=== PATIENT | male | born 1945 | race African-American/Black ===

== ENCOUNTER 2017-09-20 09:38 | Inpatient (IN) | payer MEDICARE ==
[2017-09-20] VITALS (24 sets, daily range): BP systolic 110–153; BP diastolic 46–98; BMI 24.0
[~2017-09-20] VITALS: Ht 175.3 cm; Wt 77.1 kg
--- NOTE | ~2017-09-20 | OP ---
PATIENT NAME: RADHA DIAZ MEDICAL RECORD: [id number] :43 LOCATION:D.M2 D.2118 ADMISSION DATE:09/20/17 SURGEON: SALONI RODGERS MD DATE OF OPERATION: 09/23/2017 PROCEDURE: Left heart catheterization, selective coronary angiography, right radial approach. CATHETERS: [place] catheter, radial sheath. Procedure was well tolerated. We proceeded with PTCA stenting to the diagonal 1. FINDINGS: Left ventriculography in 30-degree MEAD view shows global hypokinesis, overall reduced EF, estimated EF 30%. CORONARY ANATOMY: 1. Left main is free of disease. 2. LAD: LAD at the apex is basically subtotally occluded with a ____ vessel distally. There is a large diagonal branch parallel to the LAD with 2 sequential 90% stenosis, otherwise is diffusely severely diseased. 3. Circumflex is small vessel, free of disease. 4. Right coronary artery has severe diffuse distal disease, not amenable to intervention. IMPRESSION: I will plan ____ the diagonal. Using indwelling radial sheath, EBU 3.5 guiding catheter provided good catheter support followed by 300 cm Whisper wire was placed across the diffusely severely diseased diagonal and distal portion of this vessel. Pre-deployment balloon was a 2.5 x 15 mm [place] balloon up and down the vessel. Stents were deployed in the following fashion. A 3.0 x 30 mm Integrity nondrug-eluting stent was taken down to the distal portion of the diagonal. More proximally, another 3.0 x 30 mm Integrity nondrug-eluting stent was inflated up to 14 atmospheres. Final angiography shows excellent resolution of both 90% plus stenosis and no significant residual. NANCIE flow was 3 throughout the procedure. Plavix was loaded in the lab. Integrilin was given. Sheath closed with TR band. ____ medical management for cardiomyopathy as well. ____ will be consulted for that purpose. TRANSINT:[id number] Voice Confirmation ID: [id number] DOCUMENT ID: [id number] SALONI RODGERS MD at 1400 CC: [id number] DICTATION DATE: 09/23/17 1510 STORE SALES MANAGER: 09/23/17 1744 DIS IN 09/24/17 [facility] [address] [place] [address]
--- NOTE | ~2017-09-20 | EC ---
PATIENT:RADHA DIAZ DATE OF SERVICE: 09/20/17 SEX: M MEDICAL RECORD: [id number] DATE OF : 43 LOCATION:D.M2 D.211 AGE OF PATIENT: 72 ADMISSION DATE: 09/20/17 REFERRING PHYSICIAN: INTERPRETING PHYSICIAN: MIKE LUIS MD ECHOCARDIOGRAM REPORT ECHO CHARGES 4 ECHO COMPLETE DATE: CLINICAL DIAGNOSIS: ELEVATED TROPONIN ECHOCARDIOGRAPHIC MEASUREMENTS (adult normal given) AC root (d.<3.7cm) 3.6 cm LV Septum d (<1.2 cm> 1.7 cm Valve Excursion 1.8 cm LV Septum (systole) 1.8 cm Left Atria (s.<4.0cm> 3.7 cm LVPW d(<1.2cm) 1.8 cm RV (d.<2.3cm) 4.0 cm LVPW (sytole) 2.0 cm LV diastole(<5.6CM) 5.4 cm MV E-F(>70mm/sec) cm LV systole 4.2 cm LVOT Diameter 2.0 cm MV exc.(>10mm) 1.8 cm Est.ejection fraction (50-75%) % DOPPLER: LVIT cm/sec A 74.0 cm/sec E 87.0 cm/sec LA cm/sec RVSP 24 mmHg LVOT 85 cm/sec AOP1/2T m/s Asc. Ao 126 cm/sec RVOT 72 cm/sec RA cm/sec PA 80 cm/sec AV Gradient Peak 6.33 mmHg AV Mean 3.40 mmHg AV Area 2.0 cm MV Gradient Peak 4.16 mmHg MV Mean 1.59 mmHg MV Area cm COMMENTS: Remarketing Manager: Dalia NUNEZ Talent Acquisition Relationship Manager: 1 Dr. Luis TAPE# PACS Pericardial Effusion N DATE OF SERVICE: 09/20/2017 Echocardiogram FINDINGS: 1. Left ventricular chamber size is mildly dilated. Left ventricular systolic function is mild to moderately reduced, overall ejection fraction 35%. 2. Left atrium is within normal limits at 3.7 cm. Right atrium and right ventricular chamber sizes are mildly dilated. 3. Valvular structures have normal structure and motion. ECHOCARDIOGRAM REPORT [id number] RADHA DIAZ 4. Doppler interrogation reveals mild mitral regurgitation, mild tricuspid regurgitation, no other valvular insufficiency or stenosis. 5. No evidence of pericardial effusion or left ventricular thrombus. TRANSINT:[id number] Voice Confirmation ID: [id number] DOCUMENT ID: [id number] MIKE LUIS MD at 1140 CC: [id number] DICTATION DATE: 09/21/17 1247 COMMERCIAL TRAILER TRUCK DRIVER: 09/21/17 1300 DIS IN 09/24/17 [place] [id number] [place] [id number]
--- NOTE | ~2017-09-20 | HEMODYNAMI ---
PATIENT:RADHA DIAZ MEDICAL RECORD: [id number] : 43 LOCATION:[address] ADMISSION DATE: 09/20/17 Generatedon:09/23/201715:06 Patient name: RADHA DIAZ Patient #: [id number] SSN: : 1945 Date of study: 09/23/2017 Page: Of Hemodynamic Procedure Report Patient Data Patient Demographics Procedure consent was obtained First Name: RADHA Gender: Male Last Name: EMILY : 1945 Patient #: [id number] Age: 72 year(s) Race: Black Additional ID: [id number] Contact details [address]: [address] [place] [address] State: [place] City: [place] Zip code: [address] Past Medical History Allergies: No known allergies Admission Admission Data Admission Date: 09/20/2017 Admission Time: 9:38 Room #: 2118 Procedure Procedure Types Cath Procedure Diagnostic Procedure LHC LH w/Coronaries Sedation Charges Moderate Sedation up to 30 minutes PCI Procedure Coronary Stent Coronary Stent Initial Procedure Description Procedure Date Procedure Date: 09/23/2017 Procedure Start Time: 14:29 Procedure End Time: 15:05 Procedure Staff Name Function Arslan Macias MD Performing Physician Nohemy Cho RT Monitor Aminah Vargas RN Nurse Aki Bedolla RT Scrub Procedure Data Cath Procedure Fluoroscopy Diagnostic fluoroscopy Total fluoroscopy Time: 13 time: 13 min min Diagnostic fluoroscopy Total fluoroscopy dose: dose: 1990 mGy 1990 mGy Contrast Material Contrast Material Type Amount (ml) Isovue 300 152 Entry Location Entry Primary Successful Side Size Upsize Upsize Entry Closure Jurado ccessful Closure Location (Fr) 1 (Fr) 2 (Fr) Remarks Device Remarks Radial Right 6 Fr Mechanical artery Short Compression Estimated blood loss: 10 ml Diagnostic catheters Device Type Used For End Catheter Placement DIAGNOSTIC Ambler 110cm 5 LV Angiography Fr catheter ([id number]) DIAGNOSTIC Ambler 110cm 5 Left Coronary Fr catheter ([id number]) Angiography Procedure Complications No complications Procedure Medications Medication Administration Route Dosage Oxygen NC 2 l/min Lidocaine 2% added to field 20 Heparin Flush Bag added to field 2 bags (1000units/500ml NS) 0.9% NaCl I.V. 100 ml/hr Versed I.V. 1 mg Fentanyl I.V. 50 mcg Versed I.V. 1 mg Fentanyl I.V. 50 mcg Radial Cocktail I.A. 1 syringe (Verapomil 2mg/Nitro 400mcg/Heparin 1500units) Versed I.V. 1 mg Fentanyl I.V. 50 mcg Heparin Bolus I.V. 4000 units Integrilin (Bolus I.V. 6.8 ml 2mg/ml) Versed I.V. 1 mg Fentanyl I.V. 50 mcg Plavix P.O. 600 mg Hemodynamics Rest Heart Rate: 74 (bpm) Pressure Samples Time Site Value (mmHg) Purpose Heart Use Rate(bpm) 14:32 LV 133/0,14 EDP 91 14:33 AO 126/83(101) Pullback 90 14:33 LV 110/11,10 Pullback 90 Gradients Valve Time Site 1 Site 2 Mean SEP/DFP Peak To Heart Use (mmHg) (sec/min) Peak Rate (mmHg) (bpm) Aortic 14:33 LV AO 0 90 110/11,10 126/83(101) Calculations Valve P-P Mean Valve Index Valve Source Name Gradient Area Flow (cm2) Aortic 0 0 Snapshots Pre Cath Intra NCS Post Cath Vital Signs Time Heart Resp SPO2 etCO2 NIBP (mmHg) Rhythm Pain Sedation Rate (ipm) (%) (mmHg) Status Level (bpm) 14:15:48 69 20 97 0 171/93(137) NSR 0 (11) 10(A) , No pain 14:20:16 72 44 100 27 179/84(132) NSR 0 (11) 10(A) , No pain 14:24:38 74 18 100 0 162/92(133) NSR 0 (11) 10(A) , No pain 14:29:03 83 16 95 0 140/87(115) NSR 0 (11) 10(A) , No pain 14:33:02 90 18 98 0 123/90(116) NSR 0 (11) 9(A) , No pain 14:38:01 98 13 96 27.7 157/98(139) NSR 0 (11) 9(A) , No pain 14:42:26 85 19 96 0 127/84(114) NSR 0 (11) 9(A) , No pain 14:46:35 85 17 97 0 142/86(122) NSR 0 (11) 9(A) , No pain 14:50:53 82 18 96 33 141/81(119) NSR 0 (11) 9(A) , No pain 14:55:07 95 19 99 24.7 145/89(93) NSR 0 (11) 9(A) , No pain 14:59:20 93 17 99 29.2 142/101(122) NSR 0 (11) 10(A) , No pain 15:03:35 85 17 97 33 160/91(127) NSR 0 (11) 10(A) , No pain Medications Time Medication Route Dose Verified Delivered Reason Note s Effectiveness by by 14:14:08 Oxygen NC 2 l/min Arslan Burr used for St Tray Vargas RN procedure 14:14:13 Lidocaine 2% added 20ml Arslan Mcdaniels for local to vial [facility] anesthetic field MD ELY 14:14:19 Heparin Flush added 2 bags Arslan Mcdaniels used for Bag to [facility] procedure (1000units/500ml field MD ELY NS) 14:14:28 0.9% NaCl I.V. 100 Arslan Burr Per physician ml/hr [facility] Tray Vargas RN, MD 14:24:32 Versed I.V. 1 mg Arslan Burr for sedation St Tray Vargas RN, MD 14:24:37 Fentanyl I.V. 50 mcg Arslan Burr for sedation [facility] Tray Vargas RN, MD 14:30:11 Versed I.V. 1 mg Arslan Burr for sedation St Tray Vargas RN, MD 14:30:15 Fentanyl I.V. 50 mcg Arslan Burr for sedation St Tray Vargas RN, MD 14:31:11 Radial Cocktail I.A. 1 Arslan Mcdaniels for (Verapomil syringe [facility] vasodilation 2mg/Nitro MD ELY 400mcg/Heparin 1500units) 14:35:51 Versed I.V. 1 mg Arslan Mcdaniels for sedation St Tray Macias MD, MD 14:35:54 Fentanyl I.V. 50 mcg Arslan Mcdaniels for sedation St Tray Macias MD, MD 14:40:19 Heparin Bolus I.V. 4000 Arslan Burr for veri fied units St Tray Vargas RN anticoagulation with dr MD stark 14:40:31 Integrilin I.V. 6.8 ml Arslan Burr for [place]ast ed (Bolus 2mg/ml) St Trya Vargas RN antiplatelet 3.2 ml therapy of vial 14:48:48 Fentanyl I.V. 50 mcg Arslan Burr for sedation St Tray Vargas RN, MD 14:48:48 Versed I.V. 1 mg Arslan Burr for sedation St Tray Vargas RN, MD 15:03:03 Plavix P.O. 600 mg Arslan Burr for St Tray Vargas RN antiplatelet therapy Procedure Log Time Note 13:57:05 Aminah Vargas RN sent for patient. Start room use. 13:57:06 Time tracking: Regular hours 13:57:10 Plan of Care:Hemodynamics will remain stable., Cardiac rhythm will remain stable., Comfort level will be maintained., Respiratory function will remain adequate., Patient/ family verbilizes understanding of procedure., Procedure tolerated without complication., Recovers from procedure without complications.. 14:04:45 Patient received from PCU to CCL 2 Alert and oriented. Tansferred to table in Supine position. 14:04:46 Warm blankets applied, and catherine hugger turned on for patient comfort. 14:04:46 Correct patient and procedure confirmed by team. 14:04:48 Signed procedure consent form obtained from patient. 14:04:48 ECG and BP/O2 sat monitors applied to patient. 14:04:49 Full Disclosure recording started 14:14:08 Oxygen 2 l/min NC was administered by Aminah Vargas RN; used for procedure; 14:14:13 Lidocaine 2% 20ml vial added to field was administered by Arslan Macias MD; for local anesthetic; 14:14:19 Heparin Flush Bag (1000units/500ml NS) 2 bags added to field was administered by Arslan Macias MD; used for procedure; 14:14:28 0.9% NaCl 100 ml/hr I.V. was administered by Aminah Vargas RN; Per physician; 14:14:31 Vital chart was started 14:17:06 Baseline sample Acquired. 14:17:10 Rhythm: sinus rhythm 14:17:26 H&P Date Dictated: 09/22/2017 Within 30 days and on chart.. 14:17:32 Pre-procedure instructions explained to patient. 14:17:32 Pre-op teaching completed and patient verbalized understanding. 14:17:35 Family in patients room. 14:17:37 Patient NPO since Midnight. 14:17:44 Patient allergic to No known allergies 14:17:48 Is the patient allergic to Iodine/contrast media? No. 14:17:50 Is patient on blood thinner?No 14:17:52 Patient diabetic? Yes. 14:17:53 If diabetic: On Metformin? Yes 14:18:00 If on Metformin: Last Dose? 09/20/2017 14:18:04 Previous problem with sedation/anesthesia? No ? 14:18:06 Snore? Yes 14:18:07 Sleep apnea? No 14:18:07 Deviated septum? No 14:18:08 Opens mouth fully? Yes 14:18:09 Sticks out tongue? Yes 14:18:16 Airway obstruction? Yes COPD/Asthma 14:18:26 Dentures? Yes LOST TEETH 14:18:33 Pre procedure: right dorsailis pedis pulse 2+ Normal; easily identifiable; not easily obliterated 14:18:35 Modified Chicho's test Ulnar < 7 seconds 14:18:37 Patient pain scale 0/10 ?. 14:18:42 IV patent on arrival in right forearm with 0.9% NaCl at [facility]. 14:18:45 Lab results completed and on chart. 14:18:48 Right Radial & Right Groin area was prepped with chlora-prep and draped in sterile fashion 14:18:49 Alarms reviewed by R. N. 14:18:50 Sharps counted by scrub and verified by R.N. 14:18:55 Use device set Radial Dx or PCI 14:18:56 ACIST Syringe (33822) opened to sterile field. 14:18:56 Medline Cath Pack ([id number]) opened to sterile field. 14:18:57 Bag Decanter (2002) opened to sterile field. 14:18:57 SHEATH 6FR Slender ([id number]) opened to sterile field. 14:18:58 DIAGNOSTIC WIRE .035 260cm J wire (163844) opened to sterile field. 14:18:58 ACIST Hand Control (91699) opened to sterile field. 14:18:59 ACIST Manifold (21587) opened to sterile field. 14:19:04 MBrace Wrist Support ([id number]) opened to sterile field. 14:20:34 Final Timeout: patient, procedure, and site verified with staff and physician. All members of the team are in agreement. 14:20:36 Right Radial & Right Groin site verified by team. 14:20:39 Physical assessment completed. ASA score P 2 - A patient with mild systemic disease as per Arslan Macias MD. 14:20:42 Sedation plan: IV Moderate Sedation Medication:Versed, Fentanyl 14:24:32 Versed 1 mg I.V. was administered by Aminah Vargas RN; for sedation; 14:24:37 Fentanyl 50 mcg I.V. was administered by Aminah Vargas RN; for sedation; 14:28:56 Zero performed for pressure channel P1 14:29:34 Procedure started. 14:29:40 Local anesthetic to right radial artery with Lidocaine 2% by Arslan Macias MD.INITIAL ACCESS ONLY 14:30:11 Versed 1 mg I.V. was administered by Aminah Vargas RN; for sedation; 14:30:15 Fentanyl 50 mcg I.V. was administered by Aminah Vargas RN; for sedation; 14:30:37 A 6 Fr Short sheath was inserted into the Right Radial artery 14:31:11 Radial Cocktail (Verapomil 2mg/Nitro 400mcg/Heparin 1500units) 1 syringe I.A. was administered by Arslan Macias MD; for vasodilation; 14:31:11 A DIAGNOSTIC Ambler 110cm 5 Fr catheter (671297) was advanced over the wire and used for LV Angiography. 14:33:09 LV gram done using MEAD 14:33:14 Injector settings: Ml/sec: 5, Volume: 15, 14:33:20 EF : 30 % 14:33:31 A DIAGNOSTIC Ambler 110cm 5 Fr catheter (707388) was advanced over the wire and used for Left Coronary Angiography. 14:35:51 Versed 1 mg I.V. was administered by Arslan Macias MD; for sedation; 14:35:54 Fentanyl 50 mcg I.V. was administered by Arslan Macias MD; for sedation; 14:37:50 Catheter removed. 14:37:[address] PEDRO PCI 14:37:59 INFLATOR Merit BasixCompak (NQ7638) opened to sterile field. 14:38:03 WHISPER 300cm guide wire ([id number]) opened to sterile field. 14:38:38 GUIDE 6FR XBLAD 3.5 catheter ([id number]) opened to sterile field. 14:39:47 6 Fr XBLAD 3.5 guide catheter was inserted over the wire 14:40:19 Heparin Bolus 4000 units I.V. was administered by Aminah Vargas RN; for anticoagulation; verified with dr stark 14:40:31 Integrilin (Bolus 2mg/ml) 6.8 ml I.V. was administered by Aminah Vargas RN; for antiplatelet therapy; Wasted 3.2 ml of vial 14:41:56 Study PCI Site: [place]ie Ira mLAD has 80% stenosis. 14:42:20 Whisper wire advanced. 14:47:40 Wire redirected to DIAG. 14:48:48 Fentanyl 50 mcg I.V. was administered by Aminah Vargas RN; for sedation; 14:48:48 Versed 1 mg I.V. was administered by Aminah Vargas RN; for sedation; 14:49:24 Inflation number: 1 A EMERGE OTW 2.5 x 15 balloon ([id number]) was prepped and advanced across the 1st Diag, then inflated to 12 JAMMIE for 0:24 (min:sec). 14:50:31 Inflation number: 2 The EMERGE OTW 2.5 x 15 balloon ([id number]) was reinflated across the 1st Diag, to 14 JAMMIE for 0:29 (min:sec). 14:52:07 Balloon removed over the wire. 14:54:51 Inflation Number: 3 A INTEGRITY OTW 3.0 X 30 stent ([id number]) was prepped and advanced across the 1st Diag. The stent was deployed at 14 JAMMIE for 0:20 (min:sec). 14:55:09 Stent catheter was removed intact over wire. 14:58:30 Inflation Number: 4 A INTEGRITY OTW 3.0 X 30 stent ([id number]) was prepped and advanced across the 1st Diag. The stent was deployed at 14 JAMMIE for 0:11 (min:sec). 14:59:04 Stent catheter was removed intact over wire. 14:59:06 Wire removed. 14:59:23 Sheath removed intact; hemostasis achieved with Mechanical Compression to the Right Radial artery. 14:59:25 Procedure ended.(Physican Out) 14:59:42 Fluoroscopy time 13.00 minutes. 14:59:46 Flurop Dose total: 1990:59:46 Fluoroscopy dose: 1990 mGy 14:59:49 Contrast amount:Isovue 300 152ml. 14:59:51 Sharps counted by scrub and verified by R.N. 14:59:53 TR band inflated with 12cc of air. 14:59:54 Insertion/operative site no bleeding no hematoma. 14:59:59 Post right radial artery:stable, clean and dry 15:00:00 Post Procedure Pulses reassessed and unchanged 15:00:10 TR BAND Standard ([id number]) opened to sterile field. 15:00:14 Post-procedure physical assessment completed. ASA score P 2 - A patient with mild systemic disease as per Arslan Macias MD. 15:00:17 Post procedure rhythm: unchanged. 15:00:20 Estimated blood loss: 10 ml 15:00:21 Post procedure instruction explained to patient.Patient verbalizes understanding. 15:00:22 Patient needs reinforcement of post procedure teaching. 15:00:31 Procedure Complication : No complications 15:02:05 Procedure type changed to Cath procedure, Diagnostic procedure, LHC, LHC w/Coronaries, Sedation Charges, Moderate Sedation up to 30 minutes, PCI procedure, Coronary Stent, Coronary Stent Initial 15:02:07 See physician's report for complete and final results. 15:02:39 SHEATH 6Fr Prelude Radial ([id number]) opened to sterile field. 15:02:59 Procedure and supply charges have been captured, reviewed, submitted and are correct. 15:03:03 Plavix 600 mg P.O. was administered by Aminah Vargas RN; for antiplatelet therapy; 15:05:43 Vital chart was stopped 15:05:46 Report given to PCU. 15:05:49 Patient transfered to PCU with Bed. 15:05:56 Procedure ended. 15:05:56 Full Disclosure recording stopped 15:06:00 End room use (Document Last) Intervention Summary Intervention Notes Time ActionType Lesion and Equipment Action# Pressure Duration Attributes Used 14:49:24 Inflate 1st Diag EMERGE OTW 1 12 00:24 balloon 2.5 x 15 balloon ([id number]) 14:50:31 Reinflate 1st Diag EMERGE OTW 2 14 00:29 balloon 2.5 x 15 balloon ([id number]) 14:54:51 Place stent 1st Diag INTEGRITY 3 14 00:20 OTW 3.0 X 30 stent ([id number]) 14:58:30 Place stent 1st Diag INTEGRITY 4 14 00:11 OTW 3.0 X 30 stent ([id number]) Device Usage Item Name Manufacture Quantity Catalog Number Hospital Part Current Minimal Lot# / Charge Number Stock Stock Serial# Code ACIST Syringe Acist 1 42650 536125 496344 [id number] 20 (50523) Medical Systems Inc Medline Cath Cardinal 1 [id number] 615183 27486 527905 5 Pack Health ([id number]) Bag Decanter Microtek 1 2001S 207329 47024 620184 5 () Medical Inc. SHEATH 6FR Terumo 1 [id number] 795298 773135 265199 40 Slender ([id number]) DIAGNOSTIC WIRE St Brody 1 126977 865750 275727 731323 30 .035 260cm J wire (278812) ACIST Hand Acist 1 86623 946114 527375 106853 5 Control (04808) Medical Systems Inc ACIST Manifold Acist 1 05676 580216 503056 376053 5 (47692) Medical Systems Inc MBrace Wrist Advanced 1 140-0250-00 181986 84033 709831 5 Support Vascular ([id number]) Dynamics DIAGNOSTIC Terumo 1 40-2301 465288 108289 490979 5 Ambler 110cm 5 Fr catheter (287404) INFLATOR Merit Merit 1 CQ2879 247134 868839 711735 15 [facility] Medical (SI6090) WHISPER 300cm Jaquez 1 [id number] 376558 770242 765281 5 guide wire Vascular ([id number]) GUIDE 6FR XBLAD Cardinal 1 [id number] 738589 565049 248651 10 3.5 catheter Health (00611475) EMERGE OTW 2.5 Concord 1 [id number] 176521 648994 884399 5 [id number] x 15 balloon Scientific ([id number]) INTEGRITY OTW Medtronic 2 [id number] 234331 092975 2 [id number] 3.0 X 30 stent [id number] ([id number]) TR BAND Terumo 1 [id number] 244900 864777 337163 40 Standard ([id number]) SHEATH 6Fr Merit 1 [id number] 340255 948624 895245 5 Prelude Radial Medical ([id number]) Signature Audit [place] Time Signature Unsigned Intra-Procedure 09/23/2017 Nohemy 3:06:13 PM Counts RT(R) Signatures Monitor : Nohemy Signature : Counts RT Date : Time : [address] [address]
[2017-09-20] MEDS ORDERED: ZOCOR20 MG PO (09:43)
[2017-09-20] MEDS ORDERED: GLUCOPHAGE1000 MG PO (09:43)
[2017-09-20] MEDS ORDERED: PROAIR HFA8.5 GM INH (09:44)
[2017-09-20] MEDS ORDERED: ADVAIR 250/501 DISK INH (09:45)
[2017-09-20] MEDS ORDERED: GLIMEPIRIDE4 MG PO (09:45)
[2017-09-20] MEDS ORDERED: SYMBICORT 16010.2 GM INH (09:45)
[2017-09-20] MEDS ORDERED: NORVASC10 MG PO (09:49)
[2017-09-20 11:09] LABS: APPEARANCE CLEAR (CLEAR); BILIRUBIN NEGATIVE (NEGATIVE); COLOR YELLOW (YELLOW); GLUCOSE NEGATIVE (NEGATIVE); KETONE NEGATIVE (NEGATIVE); NITRITE NEGATIVE (NEGATIVE); PH 6.5 (5.0-6.0); PROTEIN NEGATIVE (NEGATIVE); SPECIFIC GRAVITY 1.005 (1.005-1.020); UROBILINOGEN NORMAL (NORMAL)
[2017-09-20 11:15] LABS: BACTERIA FEW /hpf (NONE SEEN); EPITHELIAL CELLS OCC /hpf (0-5); WHITE CELLS - URINE 0-5 /hpf (0-5)
[2017-09-20 11:46] LABS: BASOPHILS 0.1 % (0-2); EOSINOPHILS 0.2 % (0-7); HEMATOCRIT 39.8 % (42.0-54.0); HEMOGLOBIN 12.7 g/dL (13.5-17.5); IMMATURE GRANULOCYTES 0.2 % (0-5); LYMPHOCYTES 7.6 % (15-50); MCHC 31.9 g/dL (31.0-37.0); MCV 78.3 fL (80.0-100.0); MEAN PLATELET VOLUME 10.4 fL (7.4-10.4); MONOCYTES 0.9 % (2-11); PLATELET COUNT 196 10x3/uL (130-400); RBC 5.08 10x6/uL (4.20-6.10); RDW 16.7 % (11.5-14.5); WBC 10.3 10x3/uL (4.8-10.8)
[2017-09-20 12:08] LABS: ALBUMIN 3.4 g/dL (3.4-5.0); ANION GAP 15.3 mmol/L (8-16); BILIRUBIN - TOTAL 0.43 mg/dL (0.2-1.3); CALCIUM 8.6 mg/dL (8.5-10.1); CARBON DIOXIDE 25.3 mmol/L (21.0-32.0); CREATININE - SERUM 1.2 mg/dL (0.6-1.3); POTASSIUM - SERUM 3.6 mmol/L (3.5-5.1); PROTEIN - SERUM 8.4 g/dL (6.4-8.2)
[2017-09-20 12:11] LABS: CKMB 34.4 U/L (0.0-3.6); CREATINE KINASE 414 UL (21-232)
[2017-09-20 12:13] LABS: TROPONIN-I 4.634 ng/mL (0.000-0.060)
[2017-09-20 18:13] LABS: CKMB 27.3 U/L (0.0-3.6); CREATINE KINASE 400 UL (21-232)
[2017-09-20 18:18] LABS: TROPONIN-I 6.899 ng/mL (0.000-0.060)
[2017-09-20 23:53] LABS: CKMB 18.2 U/L (0.0-3.6); CREATINE KINASE 322 UL (21-232)
[2017-09-20 23:55] LABS: TROPONIN-I 6.446 ng/mL (0.000-0.060)
[2017-09-21] VITALS (12 sets, daily range): BP systolic 114–153; BP diastolic 70–88; Ht 175.3 cm; Wt 77.1 kg
[2017-09-21 04:08] LABS: BASOPHILS 0.1 % (0-2); EOSINOPHILS 0 % (0-7); HEMATOCRIT 36.8 % (42.0-54.0); HEMOGLOBIN 11.7 g/dL (13.5-17.5); IMMATURE GRANULOCYTES 0.2 % (0-5); LYMPHOCYTES 19.5 % (15-50); MCH 24.7 pg (26.0-34.0); MCHC 31.8 g/dL (31.0-37.0); MCV 77.8 fL (80.0-100.0); MEAN PLATELET VOLUME 11.3 fL (7.4-10.4); MONOCYTES 5.9 % (2-11); NEUTROPHILS 74.3 % (40-80); PLATELET COUNT 207 10x3/uL (130-400); RBC 4.73 10x6/uL (4.20-6.10); RDW 16.5 % (11.5-14.5); WBC 10.8 10x3/uL (4.8-10.8)
[2017-09-21 04:33] LABS: ANION GAP 14.4 mmol/L (8-16); CALCIUM 8.4 mg/dL (8.5-10.1); CARBON DIOXIDE 24.4 mmol/L (21.0-32.0); CREATININE - SERUM 1.1 mg/dL (0.6-1.3); POTASSIUM - SERUM 3.8 mmol/L (3.5-5.1)
[2017-09-22 04:00] VITALS: BP 158/95
[2017-09-22 06:04] LABS: BASOPHILS 0.5 % (0-2); EOSINOPHILS 1.9 % (0-7); HEMATOCRIT 38.4 % (42.0-54.0); IMMATURE GRANULOCYTES 0.2 % (0-5); MCH 24.5 pg (26.0-34.0); MCHC 31.3 g/dL (31.0-37.0); MCV 78.5 fL (80.0-100.0); MEAN PLATELET VOLUME 10.8 fL (7.4-10.4); MONOCYTES 7.3 % (2-11); NEUTROPHILS 53.1 % (40-80); PLATELET COUNT 186 10x3/uL (130-400); RBC 4.89 10x6/uL (4.20-6.10); RDW 16.7 % (11.5-14.5); WBC 8.5 10x3/uL (4.8-10.8)
[2017-09-22 06:39] LABS: ALBUMIN 3.1 g/dL (3.4-5.0); ALKALINE PHOSPHATASE 77 U/L (46-116); CALC OSMOLALITY 282 mosm/kg (275-300); CALCIUM 8.2 mg/dL (8.5-10.1); CHLORIDE - SERUM 104 mmol/L (98-107); CREATININE - SERUM 1.1 mg/dL (0.6-1.3); GLUCOSE 157 mg/dL (74-106); POTASSIUM - SERUM 3.6 mmol/L (3.5-5.1); PRO BNP 1506 pg/mL (0-125); PROTEIN - SERUM 7.5 g/dL (6.4-8.2); SODIUM 140 mmol/L (136-145); UREA NITROGEN 16 mg/dL (7-18); eGFR NON AFRICAN AMERICAN 70 mL/min (90-120)
[2017-09-22 06:42] LABS: ALT (SGPT) 35 U/L (10-68); TROPONIN-I 3.728 ng/mL (0.000-0.060)
[2017-09-22 09:21] VITALS: BP 152/90
[2017-09-22 13:01] VITALS: BP 160/91
[2017-09-22 17:36] VITALS: BP 155/95
[2017-09-22 19:00] VITALS: BP 158/83
[2017-09-23] VITALS: BP 159/94
[2017-09-23 04:00] VITALS: BP 146/83
[2017-09-23 05:46] LABS: BASOPHILS 0.4 % (0-2); EOSINOPHILS 5.5 % (0-7); HEMATOCRIT 38.4 % (42.0-54.0); HEMOGLOBIN 12.2 g/dL (13.5-17.5); LYMPHOCYTES 31.7 % (15-50); MCH 24.8 pg (26.0-34.0); MCHC 31.8 g/dL (31.0-37.0); MCV 78.2 fL (80.0-100.0); MEAN PLATELET VOLUME 10.5 fL (7.4-10.4); MONOCYTES 7.3 % (2-11); NEUTROPHILS 55.1 % (40-80); PLATELET COUNT 173 10x3/uL (130-400); RBC 4.91 10x6/uL (4.20-6.10); RDW 16.6 % (11.5-14.5)
[2017-09-23 06:14] LABS: CALC OSMOLALITY 280 mosm/kg (275-300); CALCIUM 8.5 mg/dL (8.5-10.1); CARBON DIOXIDE 23.1 mmol/L (21.0-32.0); CHLORIDE - SERUM 104 mmol/L (98-107); GLUCOSE 167 mg/dL (74-106); POTASSIUM - SERUM 3.4 mmol/L (3.5-5.1); SODIUM 138 mmol/L (136-145); UREA NITROGEN 14 mg/dL (7-18); eGFR NON AFRICAN AMERICAN 78 mL/min (90-120)
[2017-09-23 08:41] VITALS: BP 168/89
[2017-09-23 12:01] VITALS: BP 160/76
[2017-09-23] MEDS ORDERED: COZAAR50 MG PO (15:59)
[2017-09-23] MEDS ORDERED: PLAVIX75 MG PO (16:02)
[2017-09-23 16:09] VITALS: BP 158/97
[2017-09-23 19:00] VITALS: BP 171/97
[2017-09-24 04:00] VITALS: BP 164/96
[2017-09-24 06:19] LABS: BASOPHILS 0.3 % (0-2); EOSINOPHILS 6.2 % (0-7); HEMATOCRIT 37.9 % (42.0-54.0); IMMATURE GRANULOCYTES 0.2 % (0-5); LYMPHOCYTES 31.9 % (15-50); MCH 24.6 pg (26.0-34.0); MCHC 31.7 g/dL (31.0-37.0); MCV 77.8 fL (80.0-100.0); MEAN PLATELET VOLUME 11.1 fL (7.4-10.4); NEUTROPHILS 54.4 % (40-80); PLATELET COUNT 186 10x3/uL (130-400); RBC 4.87 10x6/uL (4.20-6.10); RDW 16.5 % (11.5-14.5); WBC 8.6 10x3/uL (4.8-10.8)
[2017-09-24 06:49] LABS: CALC OSMOLALITY 278 mosm/kg (275-300); CALCIUM 8.3 mg/dL (8.5-10.1); CARBON DIOXIDE 21.6 mmol/L (21.0-32.0); CHLORIDE - SERUM 103 mmol/L (98-107); CREATININE - SERUM 0.9 mg/dL (0.6-1.3); GLUCOSE 159 mg/dL (74-106); POTASSIUM - SERUM 3.8 mmol/L (3.5-5.1); SODIUM 138 mmol/L (136-145); UREA NITROGEN 13 mg/dL (7-18); eGFR NON AFRICAN AMERICAN 88 mL/min (90-120)
[2017-09-24 08:21] VITALS: BP 171/107
== END 2017-09-24 10:27 | disposition home or self-care (01) | DRG 248 ==
LOC: D.ICU 09:38 → D.M2 09:38
PROVIDERS: Internal Medicine Interventional Cardiology; Internal Medicine Nephrology
PROC: B2111ZZ Fluoroscopy of Multiple Coronary Arteries using Low Osmolar Contrast (ICD-10-PCS; 2017-09-23)
PROC: B2151ZZ Fluoroscopy of Left Heart using Low Osmolar Contrast (ICD-10-PCS; 2017-09-23)
PROC: 02703EZ Dilation of Coronary Artery, One Artery with Two Intraluminal Devices, Percutaneous Approach (ICD-10-PCS; principal; 2017-09-23 13:00)
PROC: 4A023N7 Measurement of Cardiac Sampling and Pressure, Left Heart, Percutaneous Approach (ICD-10-PCS; 2017-09-23 13:00)
DX: I21.A1 Myocardial infarction type 2 (principal); J96.01 Acute respiratory failure with hypoxia; J44.1 Chronic obstructive pulmonary disease with (acute) exacerbation; E87.2 Acidosis; I42.9 Cardiomyopathy, unspecified; E11.9 Type 2 diabetes mellitus without complications; I10 Essential (primary) hypertension; E78.5 Hyperlipidemia, unspecified; Z72.0 Tobacco use; I25.10 Atherosclerotic heart disease of native coronary artery without angina pectoris; I95.9 Hypotension, unspecified

== ENCOUNTER 2017-10-04 12:58 | Observation (INO) | payer MEDICARE ==
[~2017-10-04] VITALS: Ht 175.3 cm; Wt 72.5 kg
--- NOTE | ~2017-10-04 | OP ---
PATIENT NAME: RADHA DIAZ MEDICAL RECORD: [id number] :43 LOCATION:D.M2 D.0 ADMISSION DATE:10/04/17 SURGEON: SALONI RODGERS MD DATE OF OPERATION: 10/05/2017 PROCEDURE: Left heart catheterization, selective coronary angiography, and right radial approach. CATHETERS: A 5-[place] sheath, [place] catheter. The procedure was well tolerated and the patient was returned to bobby. Sheath was removed. TR band was placed. FINDINGS: Left ventriculography in 30-degree MEAD view shows anteroapical, apical, and inferoapical hypokinesis. Overall, LV function reduced 30%. CORONARY ANATOMY: 1. Left main: Left main is free of disease. 2. LAD: LAD has basically subtotaled in its distal portion, unchanged from previous diagonal itself, diagonal stents previously placed were widely patent. 3. Circumflex: Circumflex is diseased. 4. Right coronary artery has severe diffuse distal disease, not amenable to intervention. IMPRESSION: Widely patent stents. Symptomology sounds certainly consistent with a cardiomyopathy. I will add carvedilol and Aldactone to his ARB. No role for intervention at this standpoint. TRANSINT:[id number] Voice Confirmation ID: [id number] DOCUMENT ID: [id number] SALONI RODGERS MD at 1155 CC: [id number] DICTATION DATE: 10/05/17 1057 PAY STATION DEPARTMENT MANAGER: 10/05/17 1236 DIS IN 10/05/17 [place] [id number] [place] [address]
--- NOTE | ~2017-10-04 | CN ---
PATIENT NAME:RADHA DIAZ MEDICAL RECORD: [id number] : 43 LOCATION:D. D.0 ADMIT DATE: 10/04/17 ACCOUNT: [id number] CONSULTING PHYSICIAN: SALONI RODGERS MD REFERRING PHYSICIAN: ISIDRO DEL ANGEL MD DATE OF CONSULTATION: 10/05/2017 HISTORY OF PRESENT ILLNESS: A 72-year-old gentleman with history of coronary artery disease, status post intervention. He is a very poor historian, history of compliance issues in the past, admitted with dyspnea, shortness of breath, chest tightness. 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 Elevated enzymes, 2.3 troponin. ECG without acute change. He also has non-amenable distal disease. We are asked to see him concerning his cardiovascular status. Questionable he has been taking his Plavix. PAST MEDICAL HISTORY: Includes; 1. History of hypertension. 2. Dyslipidemia. 3. Diabetes mellitus. ALLERGIES: None known. MEDICATIONS: Amaryl 4 mg p.o. daily, metformin 1 gram b.i.d., Cozaar 50 every day, amlodipine 10 every day, simvastatin 20 every day, clopidogrel 75 every day, albuterol 2 puffs q.6h. REVIEW OF SYSTEMS: The patient reports easy bruising but reports no swollen glands. The patient reports no fever, no night sweats, no significant weight gain, no significant weight loss. No significant exercise tolerance. The patient reports no dry eyes, no irritation, no vision change. Patient reports no difficulty hearing and no ear pain. Patient reports no frequent nose bleeds or nose and sinus problems. Patient reports on arm pain on exertion. No shortness of breath while lying down. No history of heart murmur. Patient reports no cough, no wheezing or coughing up blood. Patient reports no abdominal pain, no vomiting. Normal appetite. No diarrhea and not vomiting blood. No nausea and no constipation. Patient reports no incontinence. No difficulty urinating. No hematuria. No increased frequency. Patient reports no muscle aches. No weakness, no arthralgias, no back pain. No swelling of the extremities. Patient reports no abnormal mole, no jaundice, no rashes. Reports no loss of consciousness. No weakness and no numbness. No seizures, dizziness, or headaches. The patient reports no depression, no sleep disturbance, feeling safe in a relationship and no alcohol abuse. Patient reports on fatigue. Reports no runny nose or sinus pressure. No itching, no hives, and no frequent sneezing. PHYSICAL EXAMINATION: GENERAL: Pleasant gentleman, in no acute distress, poor historian. VITAL SIGNS: Blood pressure 154/82, pulse 71 and regular. HEENT: Normocephalic, atraumatic. NECK: No bruits noted. HEART: Regular, S4 gallop is noted. LUNGS: Bibasilar fine rales. ABDOMEN: Soft, nontender. EXTREMITIES: Pulses 1+. There is no edema. NEUROLOGIC: Grossly intact. CONSULT REPORT [id number] RADHA DIAZ DIAGNOSTIC DATA: ECG without acute change. IMPRESSION: Difficult to get if this is anginal type symptomatology. Given diagonal location of his previous stent, it would be difficult to interpret electrocardiographically. This probably may all be myopathic type symptomatology. PLAN: Plan for angiography pressure. Further recommendations based on clinical course. TRANSINT:[id number] Voice Confirmation ID: [id number] DOCUMENT ID: [id number] SALONI RODGERS MD at 1155 CC: [id number] DICTATION DATE: 10/05/17 0811 LABORER PRESTRESSED CONCRETE: 10/05/17 1232 DIS IN 10/05/17 [id number] [place] [address]
--- NOTE | ~2017-10-04 | HEMODYNAMI ---
PATIENT:RADHA DIAZ MEDICAL RECORD: [id number] : 43 LOCATION:[address] ADMISSION DATE: 10/04/17 Generatedon:10/05/201710:44 Patient name: RADHA DIAZ Patient #: [id number] SSN: : 1945 Date of study: 10/05/2017 Page: Of Hemodynamic Procedure Report Patient Data Patient Demographics Procedure consent was obtained First Name: RADHA Gender: Male Last Name: EMILY : 1945 Patient #: [id number] Age: 72 year(s) Race: Black Additional ID: [id number] Contact details Address: [address] [place] [address] State: [place] City: [place] Zip code: [address] Past Medical History Allergies: No known allergies Admission Admission Data Admission Date: 10/04/2017 Admission Time: 13:58 Room #: [facility] Weight (lbs.): 160.94 Weight (kg.): 73 Procedure Procedure Types Cath Procedure Diagnostic Procedure C [facility] w/Coronaries Sedation Charges Moderate Sedation up to 15 minutes Procedure Description Procedure Date Procedure Date: 10/05/2017 Procedure Start Time: 10:30 Procedure End Time: 10:43 Procedure Staff Name Function Arslan Macias MD Performing Physician Aki Bedolla RT Monitor Aminah Vargas RN Nurse Nohemy Cho RT Scrub Procedure Data Cath Procedure Fluoroscopy Diagnostic fluoroscopy Total fluoroscopy Time: 2.6 time: 2.6 min min Diagnostic fluoroscopy Total fluoroscopy dose: 410 dose: 410 mGy mGy Contrast Material Contrast Material Type Amount (ml) Isovue 300 44 Entry Location Entry Primary Successful Side Size Upsize Upsize Entry Closure Jurado ccessful Closure Location (Fr) 1 (Fr) 2 (Fr) Remarks Device Remarks Radial Right 6 Fr Mechanical artery Short Compression Estimated blood loss: 10 ml Diagnostic catheters Device Type Used For End Catheter Placement DIAGNOSTIC [place] 110cm 5 Procedure Fr catheter ([id number]) Procedure Complications No complications Procedure Medications Medication Administration Route Dosage Oxygen NC 2 l/min Lidocaine 2% added to field 20 Heparin Flush Bag added to field 2 bags (1000units/500ml NS) 0.9% NaCl I.V. 100 ml/hr Versed I.V. 1 mg Fentanyl I.V. 50 mcg Versed I.V. 1 mg Fentanyl I.V. 50 mcg Versed I.V. 1 mg Fentanyl I.V. 50 mcg Radial Cocktail I.A. 1 syringe (Verapomil 2mg/Nitro 400mcg/Heparin 1500units) Versed I.V. 1 mg Fentanyl I.V. 50 mcg Hemodynamics Rest Heart Rate: 84 (bpm) Pressure Samples Time Site Value (mmHg) Purpose Heart Use Rate(bpm) 10:35 LV 95/7,8 Snapshot 92 Gradients Valve Time Site Site Mean SEP/DFP Peak To Heart Use 1 2 (mmHg) (sec/min) Peak Rate (mmHg) (bpm) Aortic 10:35 LV AO 93 Snapshots Pre Cath Intra NCS Post Cath Vital Signs Time Heart Resp SPO2 etCO2 NIBP (mmHg) Rhythm Pain Sedation Rate (ipm) (%) (mmHg) Status Level (bpm) 10:15:07 84 22 98 32.1 121/80(101) NSR 0 (11) 10(A) , No pain 10:19:16 86 18 94 0 120/74(93) NSR 0 (11) 10(A) , No pain 10:23:22 86 13 96 32.1 119/80(99) NSR 0 (11) 10(A) , No pain 10:27:20 92 16 96 32.8 113/77(92) NSR 0 (11) 10(A) , No pain 10:32:23 85 14 96 32.1 123/90(107) NSR 0 (11) 9(A) , No pain 10:36:31 98 13 95 2.9 101/77(88) NSR 0 (11) 9(A) , No pain 10:40:26 94 15 95 31.3 117/86(99) NSR 0 (11) 10(A) , No pain Medications Time Medication Route Dose Verified Delivered Reason Notes Effectiveness by by 10:14:16 Oxygen NC 2 l/min Arslan Burr used for [facility] Tray Vargas chemical research worker 10:14:21 Lidocaine 2% added 20ml Arslan Mcdaniels for local to vial [facility] anesthetic field MD ELY 10:14:28 Heparin Flush added 2 bags Arslan Mcdaniels used for Bag to [facility] procedure (1000units/500ml field MD ELY NS) 10:14:36 0.9% NaCl I.V. 100 Arslan Burr Per ml/hr St Tray napoles MD 10:19:20 Versed I.V. 1 mg Arslan Burr for sedation [facility] Tray Vargas RN, MD 10:19:26 Fentanyl I.V. 50 mcg Arslan Burr for sedation [facility] Tray Vargas RN, MD 10:21:58 Versed I.V. 1 mg Arslan Burr for sedation [facility] Tray Vargas RN, MD 10:22:01 Fentanyl I.V. 50 mcg Arslan Burr for sedation St Tray Vargas RN, MD 10:28:51 Versed I.V. 1 mg Arslan Burr for sedation St Tray Vargas RN, MD 10:28:56 Fentanyl I.V. 50 mcg Arslan Burr for sedation [facility] Tray Vargas RN, MD 10:32:51 Versed I.V. 1 mg Arslan Mcdaniels for sedation St Tray Macias MD, MD 10:32:57 Fentanyl I.V. 50 mcg Arslan Mcdaniels for sedation St Tray Macias MD, MD 10:33:49 Radial Cocktail I.A. 1 Arslan Mcdaniels for (Verapomil syringe [facility] vasodilation 2mg/Nitro MD ELY 400mcg/Heparin 1500units) Procedure Log Time Note 9:37:21 Aki Bedolla RT(R) sent for patient. Start room use. 9:37:22 Time tracking: Regular hours 9:37:27 Plan of Care:Hemodynamics will remain stable., Cardiac rhythm will remain stable., Comfort level will be maintained., Respiratory function will remain adequate., Patient/ family verbilizes understanding of procedure., Procedure tolerated without complication., Recovers from procedure without complications.. 9:55:00 Patient received from PCU to CCL 2 Alert and oriented. Tansferred to table in Supine position. 9:55:01 Warm blankets applied, and catherine hugger turned on for patient comfort. 9:55:02 Correct patient and procedure confirmed by team. 9:55:03 Signed procedure consent form obtained from patient. 9:55:03 ECG and BP/O2 sat monitors applied to patient. 10:14:05 Vital chart was started 10:14:16 Oxygen 2 l/min NC was administered by Aminah Vargas RN; used for procedure; 10:14:21 Lidocaine 2% 20ml vial added to field was administered by Arslan Macias MD; for local anesthetic; 10:14:28 Heparin Flush Bag (1000units/500ml NS) 2 bags added to field was administered by Arslan Macias MD; used for procedure; 10:14:36 0.9% NaCl 100 ml/hr I.V. was administered by Aminah Vargas RN; Per physician; 10:16:54 Baseline sample Acquired. 10:16:58 Rhythm: sinus rhythm 10:17:00 Full Disclosure recording started 10:17:03 H&P Date Dictated: 10/05/2017 Within 30 days and on chart.. 10:17:04 Pre-procedure instructions explained to patient. 10:17:05 Pre-op teaching completed and patient verbalized understanding. 10:17:07 Family unavailable. 10:17:08 Patient NPO since Midnight. 10:17:09 Is the patient allergic to Iodine/contrast media? No. 10:17:10 Is patient on blood thinner?Yes 10:17:13 ACC The patient was administered the following blood thiners within the last 24 hours: ACCPlavix 10:17:24 Patient diabetic? Yes. 10:17:30 If diabetic: On Metformin? No 10:17:40 Previous problem with sedation/anesthesia? No ? 10:17:41 Snore? No 10:17:47 Sleep apnea? No 10:17:48 Deviated septum? No 10:17:49 Opens mouth fully? Yes 10:17:50 Sticks out tongue? Yes 10:17:52 Airway obstruction? No ? 10:17:53 Dentures? No ? 10:17:58 Pre procedure: right dorsailis pedis pulse 1+ Palpable, but thready & weak; easily obliterated 10:18:00 Modified Chicho's test Ulnar < 7 seconds 10:18:02 Patient pain scale 0/10 ?. 10:18:12 IV patent on arrival in left forearm with 0.9% NaCl at [facility]. 10:18:15 Lab results completed and on chart. 10:18:21 Right Radial & Right Groin area was prepped with chlora-prep and draped in sterile fashion 10:18:23 Alarms reviewed by R. N. 10:18:23 Sharps counted by scrub and verified by R.N. 10:18:31 --------ALL STOP TIME OUT------ 10:18:32 Final Timeout: patient, procedure, and site verified with staff and physician. All members of the team are in agreement. 10:18:34 Right Radial & Right Groin site verified by team. 10:18:37 Physical assessment completed. ASA score P 2 - A patient with mild systemic disease as per Arslan Macias MD. 10:18:40 Sedation plan: IV Moderate Sedation Medication:Versed, Fentanyl 10:18:55 Use device set Radial Dx or PCI 10:18:58 Tegaderm 4 x 4 (1626W) opened to sterile field. 10:18:58 ACIST Manifold (44986) opened to sterile field. 10:18:59 ACIST Hand Control (86860) opened to sterile field. 10:19:00 ACIST Syringe (43052) opened to sterile field. 10:19:01 Medline Cath Pack ([id number]) opened to sterile field. 10:19:01 Bag Decanter (2002S) opened to sterile field. 10:19:05 DIAGNOSTIC WIRE .035 260cm J wire (996916) opened to sterile field. 10:19:05 MBrace Wrist Support ([id number]) opened to sterile field. 10:19:14 SHEATH 6Fr Prelude Radial ([id number]) opened to sterile field. 10:19:20 Versed 1 mg I.V. was administered by Aminah Vargas RN; for sedation; 10:19:26 Fentanyl 50 mcg I.V. was administered by Aminah Vargas RN; for sedation; 10:19:49 Patient Weight : 160.94 lbs 10:21:58 Versed 1 mg I.V. was administered by Aminah Vargas RN; for sedation; 10:22:01 Fentanyl 50 mcg I.V. was administered by Aminah Vargas RN; for sedation; 10:28:51 Versed 1 mg I.V. was administered by Aminah Vargas RN; for sedation; 10:28:56 Fentanyl 50 mcg I.V. was administered by Aminah Vargas RN; for sedation; 10:30:29 Zero performed for pressure channel P1 10:30:34 Procedure started. 10:30:39 Local anesthetic to right radial artery with Lidocaine 2% by Arslan Macias MD.INITIAL ACCESS ONLY 10:32:51 Versed 1 mg I.V. was administered by Arslan Macias MD; for sedation; 10:32:57 Fentanyl 50 mcg I.V. was administered by Arslan Macias MD; for sedation; 10:33:33 A 6 Fr Short sheath was inserted into the Right Radial artery 10:33:49 Radial Cocktail (Verapomil 2mg/Nitro 400mcg/Heparin 1500units) 1 syringe I.A. was administered by Arslan Macias MD; for vasodilation; 10:34:02 A DIAGNOSTIC [place] 110cm 5 Fr catheter ([id number]) was advanced over the wire and used for Procedure. 10:35:06 LV angiography performed. 10:35:14 LV gram done using MEAD 10:35:38 EF : 30 % 10:36:34 RCA angiography performed. 10:37:57 LCA angiography performed. 10:39:06 Catheter removed. 10:39:15 TR BAND Standard ([id number]) opened to sterile field. 10:39:31 Sheath removed intact; hemostasis achieved with Mechanical Compression to the Right Radial artery. 10:39:33 Procedure ended.(Physican Out) 10:40:21 Fluoroscopy time 02.60 minutes. 10:40:24 Flurop Dose total: 410 10:40:24 Fluoroscopy dose: 410 mGy 10:40:26 Contrast amount:Isovue 300 44ml. 10:40:28 Sharps counted by scrub and verified by R.N. 10:40:32 TR band inflated with 12cc of air. 10:40:33 Insertion/operative site no bleeding no hematoma. 10:40:37 Post Procedure Pulses reassessed and unchanged 10:40:40 Post-procedure physical assessment completed. ASA score P 2 - A patient with mild systemic disease as per Arslan Macias MD. 10:40:42 Post procedure rhythm: unchanged. 10:40:48 Estimated blood loss: 10 ml 10:40:50 Post procedure instruction explained to patient.Patient verbalizes understanding. 10:40:50 Patient needs reinforcement of post procedure teaching. 10:41:23 Procedure type changed to Cath procedure, Diagnostic procedure, LHC, LHC w/Coronaries, Sedation Charges, Moderate Sedation up to 15 minutes 10:41:27 Procedure Complication : No complications 10:42:30 Procedure and supply charges have been captured, reviewed, submitted and are correct. 10:42:31 Vital chart was stopped 10:42:31 See physician's report for complete and final results. 10:42:33 Report given to PCU. 10:42:50 Patient transfered to PCU with Bed. 10:43:41 Procedure ended. 10:43:41 Full Disclosure recording stopped 10:43:46 End room use (Document Last) Device Usage Item Name Manufacture Quantity Catalog Number Hospital Part Current M inimal Lot# / Charge Number Stock Stock Serial# Code Tegaderm 4 x 4 3M 1 [id number] [id number] 5 (1626W) ACIST Manifold Acist 1 79142 902341 616490 582800 5 (66477) [employer] ACIST Hand Acist 1 59223 766026 437154 065504 5 Control (63008) [employer] ACIST Syringe Acist 1 46067 259351 317658 529992 2 0 (25053) [employer] Medline Cath Cardinal 1 [id number] 002808 67998 379873 5 [facility] VinPerfect ([id number]) Bag Decanter Microtek 1 2002S 750988 86737 675303 5 (2001S) Medical Inc. DIAGNOSTIC WIRE [facility] [place] 1 316365 794964 626554 541193 3 0 .035 260cm J wire (802372) MBrace Wrist Advanced 1 140-0250-00 227943 03765 236591 5 Support Vascular ([id number]) Dynamics SHEATH 6Fr Merit 1 [id number] 177860 553390 247291 5 Prelude Radial Medical ([id number]) DIAGNOSTIC Terumo 1 81-6363 464331 848063 314666 5 [place] 110cm 5 Fr catheter (136333) TR BAND Terumo 1 [id number] 287973 792813 936434 4 0 Standard ([id number]) Signature Audit Ola Stage Time Signature Unsigned Intra-Procedure 10/05/2017 Aki Bedolla 10:44:27 AM RT(R) Signatures Monitor : Aki Bedolla RT Signature : Date : Time : [address] [place] [address]
[~2017-10-04 12:58] MED LIST: ADVAIR 250/501 DISK INH; COZAAR50 MG PO; GLIMEPIRIDE4 MG PO; GLUCOPHAGE1000 MG PO; NORVASC10 MG PO; PLAVIX75 MG PO; PROAIR HFA8.5 GM INH; SYMBICORT 16010.2 GM INH; ZOCOR20 MG PO
[2017-10-04 14:25] VITALS: BP 156/62; BMI 25.4
[2017-10-04 15:13] VITALS: Ht 175.3 cm; Wt 72.5 kg
[2017-10-04 17:05] LABS: CKMB 2.9 U/L (0.0-3.6); CREATINE KINASE 135 UL (21-232)
[2017-10-04 17:06] LABS: TROPONIN-I 1.298 ng/mL (0.000-0.060)
[2017-10-04 17:15] VITALS: BP 159/90
[2017-10-04 21:25] VITALS: BP 147/74
[2017-10-04 22:52] LABS: CKMB 2.5 U/L (0.0-3.6); CREATINE KINASE 125 UL (21-232)
[2017-10-04 22:54] LABS: TROPONIN-I 1.236 ng/mL (0.000-0.060)
[2017-10-05 00:35] VITALS: BP 132/78
[2017-10-05 04:25] LABS: CKMB 2.6 U/L (0.0-3.6); CREATINE KINASE 115 UL (21-232); TROPONIN-I 1.216 ng/mL (0.000-0.060)
[2017-10-05 05:41] VITALS: BP 154/82
[2017-10-05 08:27] LABS: ANION GAP 15.9 mmol/L (8-16); CALCIUM 8.6 mg/dL (8.5-10.1); CARBON DIOXIDE 25.8 mmol/L (21.0-32.0); CREATININE - SERUM 1.1 mg/dL (0.6-1.3); POTASSIUM - SERUM 3.7 mmol/L (3.5-5.1)
[2017-10-05 08:39] VITALS: BP 117/81
[2017-10-05 08:46] LABS: BASOPHILS 0.9 % (0-2); EOSINOPHILS 6.2 % (0-7); HEMATOCRIT 36.9 % (42.0-54.0); HEMOGLOBIN 11.8 g/dL (13.5-17.5); IMMATURE GRANULOCYTES 0.1 % (0-5); LYMPHOCYTES 34.7 % (15-50); MCH 24.8 pg (26.0-34.0); MCV 77.7 fL (80.0-100.0); MONOCYTES 5.2 % (2-11); NEUTROPHILS 52.9 % (40-80); PLATELET COUNT 271 10x3/uL (130-400); RBC 4.75 10x6/uL (4.20-6.10); RDW 16.5 % (11.5-14.5); WBC 7.6 10x3/uL (4.8-10.8)
[2017-10-05] MEDS ORDERED: COREG 3.1253.125 MG PO (12:59)
[2017-10-05] MEDS ORDERED: ALDACTONE25 MG PO (13:00)
== END 2017-10-05 14:05 | disposition home or self-care (01) ==
LOC: D.M2 12:58 → OBSVTIME 13:58 → D.M2 13:58
PROVIDERS: Internal Medicine Interventional Cardiology; Internal Medicine Nephrology
DX: I42.9 Cardiomyopathy, unspecified (principal); I11.0 Hypertensive heart disease with heart failure; I50.22 Chronic systolic (congestive) heart failure; I25.10 Atherosclerotic heart disease of native coronary artery without angina pectoris; Z95.5 Presence of coronary angioplasty implant and graft; I21.4 Non-ST elevation (NSTEMI) myocardial infarction; E78.5 Hyperlipidemia, unspecified; D50.9 Iron deficiency anemia, unspecified; E83.42 Hypomagnesemia; J44.1 Chronic obstructive pulmonary disease with (acute) exacerbation; Z72.0 Tobacco use